=== PATIENT | male | born 1985 | race Caucasian/White ===

== ENCOUNTER 2022-09-18 19:40 | Inpatient (IN) ==
[2022-09-18] MEDS ORDERED: ZOFRAN TAB 4 MG PO STA (20:46)
--- NOTE | 2022-09-18 20:47 | DR.ABDMALE ---
HPI Time seen Time Seen by Provider: 09/18/22 20:46 PCP Primary Care Physician: KASSANDRA POLLARD HPI comment HPI Comment: 37y/o with EF 20% discharged earlier today after a bout of chf in now reporting that his main issue is abd pain x one month which no one has addressed; he is "always hurting" with nausea and intermittent vomiting as well as a 50 lbs wt loss in the past three months; he has a poor appetite but no fever, chills or rash; last bm three days ago; he denies etoh and nsaid use and reports his a1c was 16 when last checked; he has been on metformin for years but was taken off for some time; he's been back on it for the past year w/o issues; he denies use of glp1 and does not take the insulin he's supposed to be taking due to lack of funds. Complaint Chief Complaint:: PT C/O HES STRUGGLING TO BREATHE, VOMITING AND FEELS LIKE SOMEONE IS SQUEEZING HIS STOMACH X 1 MONTH. PT STATES HE WAS JUST D/C'D FROM [facility] THIS DATE AFTER A 3 DAY STAY FOR THE SAME SX WITH NO RELIEF. COVID-19 Coronavirus risk:travel/contact w/high risk person: No Has patient experienced Coronavirus symptoms: No Mode of arrival Mode of Arrival: Ambulatory Timing Onset of Chief Complaint: 08/19/22 PMH PMH Past Medical History: Yes Past Medical History: CHF and Diabetes Past Surgical History: Yes Past Surgical History Comment: HEART CATH THIS YEAR Family History History of Family Medical Conditions: Yes Family Medical History: Diabetes Mellitus, Coronary Artery Disease and Hypertension Social History Does patient currently use any type of tobacco product: Yes Have you used tobacco products in the last 12 months: Yes Type of Tobacco Use: Cigarettes Alcohol Use: None Do you use any recreational Drugs:: Yes (THC) Lives With: Family Lives Where: Home Travel Risk Coronavirus risk:travel/contact w/high risk person: No Has patient experienced Coronavirus symptoms: No Infectious screening In the last 2 months have you had wt loss of >10#?: NO Have you had fever, night sweats or hemotysis?: No Have you traveled outside the country in the last 6 months?: No Isolation: Standard ROS Review of Systems Constitutional: No Symptoms Reported Eyes: No Symptoms Reported ENTM: No Symptoms Reported Respiratoy: No Symptoms Reported Cardiovascular: See HPI, Chest Pain and Edema Gastrointestinal/Abdominal: See HPI and Abdominal Pain Genitourinary: No Symptoms Reported Neurological: No Symptoms Reported Musculoskeletal: No Symptoms Reported Integumentary: No Symptoms Reported Hematologic/Lymphatic: No Symptoms Reported Endocrine: No Symptoms Reported Psychiatric: No Symptoms Reported PE Vital Signs Vital Signs: Temp Pulse Resp BP Pulse Ox O2 Del Method 09/18/22 19:42 98.2 F 83 22 93/70 100 Room Air General Limitations: No Limitations General Appearance: Alert, In No Apparent Distress and Other (obvious loss of wt but still w/increased bmi) Head Head Exam: Normal Inspection Eyes Eye exam: Normal Appearance ENT ENT Exam: Normal Exam Neck Neck Exam: Normal Inspection Chest Chest Inspection: Normal Inspection Respiratory Respiratory Exam: Normal Lung Sounds Bilat Cardiovascular Cardiovascular Exam: Regular Rate and Normal Rhythm Abdominal Exam Abdominal Exam: Normal Inspection and Normal Bowel Sounds Abdominal Tenderness: RUQ, LLQ, Epigastrium and Moderate Rectal Rectal Exam: Deferred Back Back Exam: Normal Inspection Extremeties Extremities Exam: Normal Inspection Exam: Male: Deferred Neurologic Neurological Exam: Alert and Oriented X3 Psychiatric Psychiatric Exam: Normal Affect and Normal Mood Skin Skin Exam: Warm, Dry, Intact and Normal Color MDM Differential Diagnosis Differential Diagnosis: Cholcystitis, Esophagitis, Gastritus/PUD, Pancreatitis and Other (comments) (diabetic gastroparesis, metformin induced) ROR Labs Reviewed Laboratory Results Reviewed?: Yes 09/18/22 21:00 09/19/22 01:05 Laboratory: WBC 7.0 X10^3/uL (3.6-10.0) 09/18/22 21:00 RBC 6.01 X10^6/uL (4.7-6.0) H 09/18/22 21:00 Hgb 15.7 g/dL (13.5-18.0) 09/18/22 21:00 Hct 47.8 % (42.0-54.0) 09/18/22 21:00 MCV 79.5 fL (80.0-100.0) L 09/18/22 21:00 MCH 26.1 pg (27.0-34.0) L 09/18/22 21:00 MCHC 32.8 g/dL (33.0-35.0) L 09/18/22 21:00 RDW 15.4 % (11.6-16.5) 09/18/22 21:00 Plt Count 344 X10^3/uL (150.0-450.0) 09/18/22 21:00 MPV 8.9 fL (7.4-11.0) 09/18/22 21:00 Neut % (Auto) 52.9 % (42.0-75.0) 09/18/22 21:00 Lymph % (Auto) 37.7 % (21.0-51.0) 09/18/22 21:00 Daniels % (Auto) 7.5 % (0.0-13.0) 09/18/22 21:00 Eos % (Auto) 0.4 % (0.9-2.9) L 09/18/22 21:00 Baso % (Auto) 1.5 % (0.2-1.0) H 09/18/22 21:00 Neut # (Auto) 3.7 x10^3/uL (2.2-4.8) 09/18/22 21:00 Lymph # (Auto) 2.6 X10^3/uL (1.3-2.9) 09/18/22 21:00 Daniels # (Auto) 0.5 x10^3/uL (0.3-0.8) 09/18/22 21:00 Eos # (Auto) 0.0 x10^3/uL (0.0-0.2) 09/18/22 21:00 Baso # (Auto) 0.1 X10^3/uL (0.0-0.1) 09/18/22 21:00 Absolute Nucleated RBC 0.1 /100WBC 09/18/22 21:00 Sodium 124 mmol/L (136-145) L* 09/19/22 01:05 Corrected Sodium 125 mmol/L (136-145) L 09/19/22 01:05 Potassium 4.7 mmol/L (3.5-5.1) 09/19/22 01:05 Chloride 87 mmol/L (98-107) L 09/19/22 01:05 Carbon Dioxide 24.4 mmol/L (21-32) 09/19/22 01:05 BUN 21 mg/dL (7-18) H 09/19/22 01:05 Creatinine 0.92 mg/dL (0.70-1.30) 09/19/22 01:05 Est GFR (MDRD) Af Amer > 60 (>60) 09/19/22 01:05 Est GFR (MDRD) Non-Af > 60 (>60) 09/19/22 01:05 Glucose 144 mg/dL (65-99) H 09/19/22 01:05 POC Glucose (mg/dL) 125 mg/dL (65-99) H 09/19/22 01:11 Calcium 8.1 mg/dL (8.5-10.1) L 09/19/22 01:05 Corrected Calcium 9.0 mg/dL (8.5-10.1) 09/18/22 21:00 Total Bilirubin 1.20 mg/dL (0.2-1.0) H 09/18/22 21:00 AST 63 Units/L (15-37) H 09/18/22 21:00 ALT 35 Units/L (12-78) 09/18/22 21:00 Alkaline Phosphatase 366 Units/L (46-116) H 09/18/22 21:00 Total Protein 5.9 g/dL (6.4-8.2) L 09/18/22 21:00 Albumin 2.2 g/dL (3.4-5.0) L 09/18/22 21:00 Globulin 3.7 g/dL (2.5-4.5) 09/18/22 21:00 Albumin/Globulin Ratio 0.6 Ratio (1.1-2.1) L 09/18/22 21:00 Lipase 54 Units/L (73-393) L 09/18/22 21:00 Specimen Type Clean catch urine 09/18/22 23:48 Urine Color Dark yellow (YELLOW) 09/18/22 23:48 Urine Appearance Clear (CLEAR) 09/18/22 23:48 Urine pH 6.0 (5.0 - 8.0) 09/18/22 23:48 Ur Specific [place] 1.020 (1.000-1.030) 09/18/22 23:48 Urine Protein 3+ (NEGATIVE) 09/18/22 23:48 Urine Glucose (UA) 2+ (NEGATIVE) 09/18/22 23:48 Urine Ketones Negative (NEGATIVE) 09/18/22 23:48 Urine Blood 1+ (NEGATIVE) 09/18/22 23:48 Urine Nitrite Negative (NEGATIVE) 09/18/22 23:48 Urine Bilirubin Negative (NEGATIVE) 09/18/22 23:48 Urine Urobilinogen 2+ (NORMAL) 09/18/22 23:48 Ur Leukocyte Esterase Negative (NEGATIVE) 09/18/22 23:48 Urine RBC 0-2 /HPF (0-3) 09/18/22 23:48 Urine WBC 0-2 /HPF (0-5) 09/18/22 23:48 Ur Squamous Epith Cells Few /HPF (NEGATIVE) 09/18/22 23:48 Urine Bacteria Trace /HPF (NEGATIVE) 09/18/22 23:48 Hyaline Casts Few /LPF (NEGATIVE) 09/18/22 23:48 Urine Mucus Moderate /HPF (NEGATIVE) 09/18/22 23:48 Ur Culture Indicated? No/not indicated 09/18/22 23:48 Other Results Comments: Pain, n/v, wt loss most likely d/t gastroparesis vs metformin; will have him hold metformin until he can see GI; no change in sodium with fluids; will admit and slowly hydrate XRAY X-ray Results: ct abd/pelvis: 1. No evidence of urinary tract stone disease. 2. Small amount of ascites in the abdomen and pelvis. 3. nonspecific body wall edema. Opioid Opioid Risk Tool Age (Alex box if 16-45): Yes History of Preadolescent Sexual Abuse: No Total: 1 Total Score Risk Category: Low Risk Copyright: Noah RIVERA predicting aberrant behaviors Discharge Plan Diagnosis Discharge Problem: Abnormal weight loss, Acute hyponatremia Abdominal pain Qualifiers: Abdominal location: generalized Qualified Code(s): R10.84 - Generalized abdominal pain Uncontrolled diabetes mellitus Qualifiers: Diabetes mellitus type: type 2 Glycemic state: with hyperglycemia Qualified Code(s): E11.65 - Type 2 diabetes mellitus with hyperglycemia Hypotension Qualifiers: Hypotension type: hypotension due to drug Qualified Code(s): I95.2 - Hypotension due to drugs Discharge Plan Patient Disposition: ADMITTED INPATIENT Condition: Stable
[2022-09-18] MEDS ORDERED: ZOFRAN TAB 4 MG ONE (20:49)
[2022-09-18 21:12] LABS: HEMOGLOBIN 15.7 g/dL (13.5-18.0); MEAN PLATELET VOLUME 8.9 fL (7.4-11.0)
[2022-09-18 21:16] LABS: BASOPHILS # (AUTO) 0.1 X10^3/uL (0.0-0.1); BASOPHILS % (AUTO) 1.5 % (0.2-1.0); EOSINOPHILS % (AUTO) 0.4 % (0.9-2.9); HEMATOCRIT 47.8 % (42.0-54.0); LYMPHOCYTES # (AUTO) 2.6 X10^3/uL (1.3-2.9); LYMPHOCYTES % (AUTO) 37.7 % (21.0-51.0); MEAN CORPUSCULAR HEMOGLOBIN 26.1 pg (27.0-34.0); MEAN CORPUSCULAR HGB CONC 32.8 g/dL (33.0-35.0); MEAN CORPUSCULAR VOLUME 79.5 fL (80.0-100.0); MONOCYTES # (AUTO) 0.5 x10^3/uL (0.3-0.8); MONOCYTES % (AUTO) 7.5 % (0.0-13.0); NEUTROPHILS # (AUTO) 3.7 x10^3/uL (2.2-4.8); NEUTROPHILS % (AUTO) 52.9 % (42.0-75.0); PLATELET COUNT 344 X10^3/uL (150.0-450.0); RED BLOOD COUNT 6.01 X10^6/uL (4.7-6.0); RED CELL DISTRIBUTION WIDTH 15.4 % (11.6-16.5)
[2022-09-18 21:20] LABS: ALANINE AMINOTRANSFERASE 35 Units/L (12-78); ALBUMIN 2.2 g/dL (3.4-5.0); ALKALINE PHOSPHATASE 366 Units/L (46-116); ASPARTATE AMINO TRANSFERASE 63 Units/L (15-37); BLOOD UREA NITROGEN 22 mg/dL (7-18); CALCIUM 7.6 mg/dL (8.5-10.1); CARBON DIOXIDE 31.4 mmol/L (21-32); CHLORIDE 89 mmol/L (98-107); COR NA(FOR HYPERGLY) 129 mmol/L (136-145); CREATININE 1.15 mg/dL (0.70-1.30); GLUCOSE 291 mg/dL (65-99); LIPASE 54 Units/L (73-393); TOTAL PROTEIN 5.9 g/dL (6.4-8.2); eGFR NON BLACK RACES > 60 (>60)
[2022-09-18 21:23] LABS: SODIUM 124 mmol/L (136-145)
[2022-09-18] MEDS ORDERED: NS 1,000 ML IV 1,000 ML ONE (21:30)
--- NOTE | 2022-09-18 21:39 | CT ---
HISTORYC/O HES STRUGGLING TO BREATHE, VOMITING AND FEELS LIKE SOMEONE IS SQUEEZING HIS STOMACH X 1 MONTH. PT [facility] THIS DATESTUDYABDOMEN/PELVIS W/O CONCOMPARISONTECHNIQUEMultiple axial images of the abdomen and pelvis were obtained from the lung bases to the pubic symphysis without the administration of IV contrast. Dose reduction techniques including Automated Exposure Control (AEC) and adjustment of mA and kV were utilized.FINDINGSThe lung bases are clear. There are small bilateral pleural effusions. The heart size is normal. The liver is normal. The spleen, adrenal glands are normal. There are no convincing stones in the gallbladder. Pancreas is somewhat atrophic. The kidneys are normal in size and there is no stone or hydronephrosis on either side. The stomach and small bowel loops are normal. The appendix is normal. The large bowel loops are grossly unremarkable. Urinary bladder is normal. The prostate is normal. There is a small amount of ascites in the abdomen. There is nonspecific induration in the mesenteric fat. There is body wall edema. There is no worrisome bone marrow lesion.IMPRESSION1. No evidence of urinary tract stone disease. 2. Small amount of ascites in the abdomen and pelvis. 3. nonspecific body wall edema.Electronically signed by: Dick Pop (Sep 18, 2022 21:37:23)
[2022-09-18] MEDS: NS 1,000 ML IV 1,000 ML IV SCH (21:40)
[2022-09-18 23:59] LABS: BILIRUBIN,URINE NEGATIVE (NEGATIVE); BLOOD/HEMOGLOBIN,URINE 1+ (NEGATIVE); GLUCOSE, URINE 2+ (NEGATIVE); KETONES,URINE NEGATIVE (NEGATIVE); LEUKOCYTE ESTERASE ,URINE NEGATIVE (NEGATIVE); NITRITES,URINE NEGATIVE (NEGATIVE); PROTEIN,URINE 3+ (NEGATIVE); UROBILINOGEN,URINE 2+ (NORMAL)
[2022-09-19 00:05] LABS: APPEARANCE,URINE CLEAR (CLEAR); COLOR,URINE DARK YELLOW (YELLOW)
[2022-09-19 00:06] LABS: BACTERIA,URINE TRACE /HPF (NEGATIVE); HYALINE CASTS, URINE FEW /LPF (NEGATIVE); RBC,URINE 0-2 /HPF (0-3); SQUAMOUS EPITHELIAL CELL,UR FEW /HPF (NEGATIVE)
[2022-09-19] MEDS ORDERED: ZOFRAN TAB 4 MG ONE (01:16)
[2022-09-19] MEDS ORDERED: ZOFRAN TAB 4 MG PO STA (01:17)
[2022-09-19 01:26] LABS: CHLORIDE 87 mmol/L (98-107)
[2022-09-19 01:34] LABS: POTASSIUM 4.7 mmol/L (3.5-5.1)
[2022-09-19 01:35] LABS: BLOOD UREA NITROGEN 21 mg/dL (7-18); CARBON DIOXIDE 24.4 mmol/L (21-32); SODIUM 124 mmol/L (136-145)
[2022-09-19 01:36] LABS: CALCIUM 8.1 mg/dL (8.5-10.1); COR NA(FOR HYPERGLY) 125 mmol/L (136-145); CREATININE 0.92 mg/dL (0.70-1.30); GLUCOSE 144 mg/dL (65-99); eGFR NON BLACK RACES > 60 (>60)
[2022-09-19] MEDS ORDERED: NovoLIN R (or HumuLIN R) SUBCUT PRN (01:46)
[2022-09-19] MEDS ORDERED: CONSULT PHARMACY - POTASSIUM & MAGNESIUM XX SCH ×2 (02:00→07:00)
[2022-09-19] MEDS ORDERED: NS 1,000 ML IV 1,000 ML ONE (02:11)
[2022-09-19] MEDS: NS 1,000 ML IV 1,000 ML IV SCH ×3 (02:14→22:39)
[2022-09-19 02:43] VITALS: BMI 34.4
[2022-09-19 05:25] LABS: BASOPHILS # (AUTO) 0.1 X10^3/uL (0.0-0.1); BASOPHILS % (AUTO) 1.3 % (0.2-1.0); EOSINOPHILS % (AUTO) 0.4 % (0.9-2.9); HEMATOCRIT 48.5 % (42.0-54.0); LYMPHOCYTES # (AUTO) 2.9 X10^3/uL (1.3-2.9); LYMPHOCYTES % (AUTO) 33.1 % (21.0-51.0); MEAN CORPUSCULAR HEMOGLOBIN 26.2 pg (27.0-34.0); MEAN CORPUSCULAR HGB CONC 32.9 g/dL (33.0-35.0); MEAN CORPUSCULAR VOLUME 79.5 fL (80.0-100.0); MEAN PLATELET VOLUME 8.8 fL (7.4-11.0); MONOCYTES # (AUTO) 0.8 x10^3/uL (0.3-0.8); MONOCYTES % (AUTO) 8.7 % (0.0-13.0); NEUTROPHILS % (AUTO) 56.5 % (42.0-75.0); PLATELET COUNT 323 X10^3/uL (150.0-450.0); RED CELL DISTRIBUTION WIDTH 15.4 % (11.6-16.5); WHITE BLOOD COUNT 8.9 X10^3/uL (3.6-10.0)
[2022-09-19 05:35] LABS: ALANINE AMINOTRANSFERASE 36 Units/L (12-78); ALBUMIN 2.3 g/dL (3.4-5.0); ALKALINE PHOSPHATASE 377 Units/L (46-116); ASPARTATE AMINO TRANSFERASE 67 Units/L (15-37); BLOOD UREA NITROGEN 20 mg/dL (7-18); CALCIUM 7.6 mg/dL (8.5-10.1); CARBON DIOXIDE 28.4 mmol/L (21-32); CHLORIDE 89 mmol/L (98-107); COR NA(FOR HYPERGLY) 128 mmol/L (136-145); CREATININE 1.05 mg/dL (0.70-1.30); GLUCOSE 247 mg/dL (65-99); POTASSIUM 3.7 mmol/L (3.5-5.1); eGFR NON BLACK RACES > 60 (>60)
[2022-09-19 05:38] LABS: SODIUM 124 mmol/L (136-145)
[2022-09-19] MEDS ORDERED: SODIUM CHL HYPERTONIC ** 3% ** 500 ML IV NR (08:49)
[2022-09-19] MEDS ORDERED: K-DUR TAB 20 MEQ PO SCH (09:00)
[2022-09-19] MEDS: GLUCOPHAGE XR 24-HR PO SCH ×2 (09:23→21:54)
[2022-09-19] MEDS: MAG-OX TAB PO SCH ×2 (09:23→21:55)
[2022-09-19] MEDS ORDERED: BUMEX TAB 1 MG PO SCH (10:00)
[2022-09-19] MEDS: ZESTRIL TAB 5 MG PO SCH (10:52)
[2022-09-19] MEDS: ASPIRIN EC 81 MG PO SCH (10:52)
[2022-09-19] MEDS: COREG TAB 3.125 MG PO SCH ×2 (10:52→21:54)
[2022-09-19] MEDS ORDERED: SNACK - Diabetic Appropriate PO SCH (20:00)
[2022-09-19] MEDS: COLACE CAP 100 MG PO SCH (21:54)
[2022-09-19] MEDS: MIRALAX POWDER (1 DOSE 17 G) PO SCH (21:55)
[2022-09-20] MEDS: NS 1,000 ML IV 1,000 ML IV SCH (03:16)
[2022-09-20 05:50] LABS: BASOPHILS # (AUTO) 0.1 X10^3/uL (0.0-0.1); BASOPHILS % (AUTO) 1.3 % (0.2-1.0); EOSINOPHILS # (AUTO) 0.1 x10^3/uL (0.0-0.2); EOSINOPHILS % (AUTO) 0.7 % (0.9-2.9); HEMATOCRIT 47.9 % (42.0-54.0); HEMOGLOBIN 15.7 g/dL (13.5-18.0); LYMPHOCYTES # (AUTO) 2.7 X10^3/uL (1.3-2.9); MEAN CORPUSCULAR HEMOGLOBIN 25.9 pg (27.0-34.0); MEAN CORPUSCULAR HGB CONC 32.8 g/dL (33.0-35.0); MEAN CORPUSCULAR VOLUME 79.1 fL (80.0-100.0); MEAN PLATELET VOLUME 9.1 fL (7.4-11.0); MONOCYTES # (AUTO) 0.7 x10^3/uL (0.3-0.8); NEUTROPHILS # (AUTO) 5.5 x10^3/uL (2.2-4.8); PLATELET COUNT 323 X10^3/uL (150.0-450.0); RED BLOOD COUNT 6.05 X10^6/uL (4.7-6.0); RED CELL DISTRIBUTION WIDTH 15.8 % (11.6-16.5); WHITE BLOOD COUNT 9.2 X10^3/uL (3.6-10.0)
[2022-09-20 06:03] LABS: ALANINE AMINOTRANSFERASE 32 Units/L (12-78); ALBUMIN 1.9 g/dL (3.4-5.0); ALKALINE PHOSPHATASE 395 Units/L (46-116); ASPARTATE AMINO TRANSFERASE 73 Units/L (15-37); BLOOD UREA NITROGEN 25 mg/dL (7-18); CALCIUM 7.4 mg/dL (8.5-10.1); CHLORIDE 91 mmol/L (98-107); COR CA(FOR HYPOALB) 9.1 mg/dL (8.5-10.1); COR NA(FOR HYPERGLY) 129 mmol/L (136-145); CREATININE 1.08 mg/dL (0.70-1.30); GLUCOSE 310 mg/dL (65-99); POTASSIUM 4.1 mmol/L (3.5-5.1); TOTAL PROTEIN 5.4 g/dL (6.4-8.2); eGFR NON BLACK RACES > 60 (>60)
[2022-09-20 06:05] LABS: SODIUM 124 mmol/L (136-145)
[2022-09-20] MEDS ORDERED: SODIUM CHL HYPERTONIC ** 3% ** 500 ML IV NR (08:41)
[2022-09-20] MEDS: ZESTRIL TAB 5 MG PO SCH (08:41)
[2022-09-20] MEDS: ASPIRIN EC 81 MG PO SCH (08:43)
[2022-09-20] MEDS: COREG TAB 3.125 MG PO SCH ×2 (08:43→21:05)
[2022-09-20] MEDS: GLUCOPHAGE XR 24-HR PO SCH ×2 (08:43→21:05)
[2022-09-20] MEDS: MAG-OX TAB PO SCH ×2 (08:44→21:05)
[2022-09-20] MEDS ORDERED: ZOFRAN INJ 4 MG VIAL IVP PRN (09:25)
[2022-09-20] MEDS: SODIUM CHL HYPERTONIC ** 3% ** 500 ML IV SCH (11:21)
[2022-09-20] MEDS ORDERED: PATIENT'S HOME MEDICATION (Precose 100 MG) PO SCH (11:30)
[2022-09-20] MEDS ORDERED: PHENERGAN INJ 25 MG IM SCH (12:00)
[2022-09-20] MEDS: FARXIGA PO SCH (13:00)
[2022-09-20] MEDS: ENTRESTO 24/26 MG TABLET PO SCH ×2 (13:02→21:06)
[2022-09-20] MEDS ORDERED: BUMEX TAB 1 MG PO SCH (21:00)
[2022-09-20] MEDS: MIRALAX POWDER (1 DOSE 17 G) PO SCH (21:06)
[2022-09-20] MEDS: COLACE CAP 100 MG PO SCH (21:06)
[2022-09-20] MEDS: NovoLIN R (or HumuLIN R) SUBCUT PRN (21:48)
[2022-09-21] MEDS: SODIUM CHL HYPERTONIC ** 3% ** 500 ML IV SCH ×2 (00:46→14:56)
[2022-09-21] MEDS: NS 1,000 ML IV 1,000 ML IV SCH ×3 (00:46→21:32)
[2022-09-21] MEDS: NovoLIN R (or HumuLIN R) SUBCUT PRN ×3 (06:24→21:34)
[2022-09-21 06:35] LABS: BASOPHILS # (AUTO) 0.1 X10^3/uL (0.0-0.1); BASOPHILS % (AUTO) 0.7 % (0.2-1.0); EOSINOPHILS # (AUTO) 0.1 x10^3/uL (0.0-0.2); EOSINOPHILS % (AUTO) 0.6 % (0.9-2.9); HEMATOCRIT 54.6 % (42.0-54.0); LYMPHOCYTES # (AUTO) 3.4 X10^3/uL (1.3-2.9); LYMPHOCYTES % (AUTO) 36.4 % (21.0-51.0); MEAN CORPUSCULAR HEMOGLOBIN 25.9 pg (27.0-34.0); MEAN CORPUSCULAR HGB CONC 32.4 g/dL (33.0-35.0); MEAN CORPUSCULAR VOLUME 79.9 fL (80.0-100.0); MEAN PLATELET VOLUME 8.9 fL (7.4-11.0); MONOCYTES # (AUTO) 0.8 x10^3/uL (0.3-0.8); MONOCYTES % (AUTO) 8.7 % (0.0-13.0); NEUTROPHILS % (AUTO) 53.6 % (42.0-75.0); PLATELET COUNT 392 X10^3/uL (150.0-450.0); RED BLOOD COUNT 6.84 X10^6/uL (4.7-6.0); WHITE BLOOD COUNT 9.4 X10^3/uL (3.6-10.0)
[2022-09-21 06:41] LABS: ALANINE AMINOTRANSFERASE 46 Units/L (12-78); ALBUMIN 2.6 g/dL (3.4-5.0); ALKALINE PHOSPHATASE 487 Units/L (46-116); ASPARTATE AMINO TRANSFERASE 79 Units/L (15-37); BLOOD UREA NITROGEN 21 mg/dL (7-18); CARBON DIOXIDE 28.9 mmol/L (21-32); CHLORIDE 94 mmol/L (98-107); COR CA(FOR HYPOALB) 9.1 mg/dL (8.5-10.1); COR NA(FOR HYPERGLY) 133 mmol/L (136-145); CREATININE 1.14 mg/dL (0.70-1.30); GLUCOSE 205 mg/dL (65-99); POTASSIUM 3.9 mmol/L (3.5-5.1); SODIUM 130 mmol/L (136-145); TOTAL PROTEIN 6.9 g/dL (6.4-8.2); eGFR NON BLACK RACES > 60 (>60)
[2022-09-21 07:23] LABS: HEMOGLOBIN 17.7 g/dL (13.5-18.0)
[2022-09-21] MEDS: ENTRESTO 24/26 MG TABLET PO SCH ×2 (08:46→20:20)
[2022-09-21] MEDS: FARXIGA PO SCH (08:46)
[2022-09-21] MEDS: GLUCOPHAGE XR 24-HR PO SCH ×2 (08:47→20:20)
[2022-09-21] MEDS: ASPIRIN EC 81 MG PO SCH (08:47)
[2022-09-21] MEDS: COREG TAB 3.125 MG PO SCH ×2 (08:47→20:20)
[2022-09-21] MEDS: MAG-OX TAB PO SCH ×3 (08:47→20:23)
[2022-09-21] MEDS ORDERED: PHENERGAN INJ 25 MG IM PRN (12:52)
[2022-09-21] MEDS: COLACE CAP 100 MG PO SCH (20:20)
[2022-09-21] MEDS: MIRALAX POWDER (1 DOSE 17 G) PO SCH (20:20)
[2022-09-22] MEDS: SODIUM CHL HYPERTONIC ** 3% ** 500 ML IV SCH ×3 (01:11→12:11)
[2022-09-22] MEDS: NovoLIN R (or HumuLIN R) SUBCUT PRN ×4 (05:42→22:40)
[2022-09-22 07:00] LABS: BASOPHILS # (AUTO) 0.1 X10^3/uL (0.0-0.1); BASOPHILS % (AUTO) 1.3 % (0.2-1.0); EOSINOPHILS # (AUTO) 0.1 x10^3/uL (0.0-0.2); EOSINOPHILS % (AUTO) 0.7 % (0.9-2.9); LYMPHOCYTES # (AUTO) 2.8 X10^3/uL (1.3-2.9); LYMPHOCYTES % (AUTO) 36.9 % (21.0-51.0); MEAN CORPUSCULAR HEMOGLOBIN 25.4 pg (27.0-34.0); MEAN CORPUSCULAR HGB CONC 32.1 g/dL (33.0-35.0); MEAN CORPUSCULAR VOLUME 79.3 fL (80.0-100.0); MEAN PLATELET VOLUME 8.9 fL (7.4-11.0); MONOCYTES # (AUTO) 0.6 x10^3/uL (0.3-0.8); MONOCYTES % (AUTO) 8.2 % (0.0-13.0); NEUTROPHILS # (AUTO) 4.1 x10^3/uL (2.2-4.8); NEUTROPHILS % (AUTO) 52.9 % (42.0-75.0); PLATELET COUNT 353 X10^3/uL (150.0-450.0); RED CELL DISTRIBUTION WIDTH 15.5 % (11.6-16.5); WHITE BLOOD COUNT 7.7 X10^3/uL (3.6-10.0)
[2022-09-22 07:19] LABS: ALANINE AMINOTRANSFERASE 36 Units/L (12-78); ALBUMIN 2.4 g/dL (3.4-5.0); ALKALINE PHOSPHATASE 410 Units/L (46-116); ASPARTATE AMINO TRANSFERASE 59 Units/L (15-37); BLOOD UREA NITROGEN 20 mg/dL (7-18); CALCIUM 7.9 mg/dL (8.5-10.1); CARBON DIOXIDE 22.5 mmol/L (21-32); CHLORIDE 98 mmol/L (98-107); COR CA(FOR HYPOALB) 9.2 mg/dL (8.5-10.1); COR NA(FOR HYPERGLY) 135 mmol/L (136-145); CREATININE 1.05 mg/dL (0.70-1.30); GLUCOSE 246 mg/dL (65-99); POTASSIUM 4.6 mmol/L (3.5-5.1); SODIUM 131 mmol/L (136-145); TOTAL PROTEIN 6.3 g/dL (6.4-8.2); eGFR NON BLACK RACES > 60 (>60)
[2022-09-22] MEDS: ENTRESTO 24/26 MG TABLET PO SCH ×2 (08:23→21:57)
[2022-09-22] MEDS: COREG TAB 3.125 MG PO SCH ×3 (08:23→21:54)
[2022-09-22] MEDS: ASPIRIN EC 81 MG PO SCH (08:24)
[2022-09-22] MEDS: FARXIGA PO SCH (08:24)
[2022-09-22] MEDS: MAG-OX TAB PO SCH ×2 (08:24→21:57)
[2022-09-22] MEDS: GLUCOPHAGE XR 24-HR PO SCH ×2 (08:24→21:56)
[2022-09-22] MEDS: NS 1,000 ML IV 1,000 ML IV SCH (08:25)
[2022-09-22] MEDS ORDERED: ALBUMIN HUMAN 25%- 100 ML 100 ML IV SCH (11:00)
[2022-09-22] MEDS: BUMEX TAB 1 MG PO SCH ×2 (13:58→21:56)
[2022-09-22 17:11] VITALS: O2SAT 100
[2022-09-22] MEDS ORDERED: BUMEX TAB 1 MG PO SCH (21:00)
[2022-09-22] MEDS: COLACE CAP 100 MG PO SCH (21:53)
[2022-09-22] MEDS: MIRALAX POWDER (1 DOSE 17 G) PO SCH (21:56)
[2022-09-23 06:23] LABS: BASOPHILS # (AUTO) 0.1 X10^3/uL (0.0-0.1); BASOPHILS % (AUTO) 1.5 % (0.2-1.0); EOSINOPHILS # (AUTO) 0.1 x10^3/uL (0.0-0.2); EOSINOPHILS % (AUTO) 1.2 % (0.9-2.9); HEMATOCRIT 46.1 % (42.0-54.0); HEMOGLOBIN 14.8 g/dL (13.5-18.0); LYMPHOCYTES # (AUTO) 3.1 X10^3/uL (1.3-2.9); LYMPHOCYTES % (AUTO) 40.9 % (21.0-51.0); MEAN CORPUSCULAR HEMOGLOBIN 25.5 pg (27.0-34.0); MEAN CORPUSCULAR VOLUME 79.6 fL (80.0-100.0); MEAN PLATELET VOLUME 8.8 fL (7.4-11.0); MONOCYTES # (AUTO) 0.7 x10^3/uL (0.3-0.8); MONOCYTES % (AUTO) 9.9 % (0.0-13.0); NEUTROPHILS # (AUTO) 3.5 x10^3/uL (2.2-4.8); NEUTROPHILS % (AUTO) 46.5 % (42.0-75.0); PLATELET COUNT 256 X10^3/uL (150.0-450.0); RED CELL DISTRIBUTION WIDTH 15.7 % (11.6-16.5); WHITE BLOOD COUNT 7.6 X10^3/uL (3.6-10.0)
[2022-09-23 06:50] LABS: ALANINE AMINOTRANSFERASE 29 Units/L (12-78); ALBUMIN 2.1 g/dL (3.4-5.0); ALKALINE PHOSPHATASE 335 Units/L (46-116); ASPARTATE AMINO TRANSFERASE 43 Units/L (15-37); BLOOD UREA NITROGEN 16 mg/dL (7-18); CALCIUM 8.4 mg/dL (8.5-10.1); CARBON DIOXIDE 29.5 mmol/L (21-32); CHLORIDE 100 mmol/L (98-107); COR CA(FOR HYPOALB) 9.9 mg/dL (8.5-10.1); COR NA(FOR HYPERGLY) 136 mmol/L (136-145); CREATININE 1.14 mg/dL (0.70-1.30); GLUCOSE 160 mg/dL (65-99); POTASSIUM 4.3 mmol/L (3.5-5.1); SODIUM 135 mmol/L (136-145); TOTAL PROTEIN 5.5 g/dL (6.4-8.2); eGFR NON BLACK RACES > 60 (>60)
[2022-09-23 08:01] VITALS: BP 92/56; PULSE 74; RESP 20; TEMP 97.5
[2022-09-23] MEDS: ENTRESTO 24/26 MG TABLET PO SCH (08:19)
[2022-09-23] MEDS: FARXIGA PO SCH (08:20)
[2022-09-23] MEDS: GLUCOPHAGE XR 24-HR PO SCH (08:20)
[2022-09-23] MEDS: MAG-OX TAB PO SCH (08:20)
[2022-09-23] MEDS: BUMEX TAB 1 MG PO SCH (08:20)
[2022-09-23] MEDS: COREG TAB 3.125 MG PO SCH (08:20)
[2022-09-23] MEDS: ASPIRIN EC 81 MG PO SCH (08:20)
== END 2022-09-23 11:30 | disposition home or self-care (01) | DRG 641 ==
LOC: MED/SURG 19:40 → ER 19:40 → OBSVTOIN 09-19 01:46 → MED/SURG 09-19 02:19
PROVIDERS: ADMIT Obstetrics & Gynecology Obstetrics; ATTEND Obstetrics & Gynecology Obstetrics
DX: E87.1 Hypo-osmolality and hyponatremia; I25.10 Atherosclerotic heart disease of native coronary artery without angina pectoris; Z72.0 Tobacco use; I95.2 Hypotension due to drugs; Z91.14 Patient's other noncompliance with medication regimen; Z86.16 Personal history of COVID-19; E11.65 Type 2 diabetes mellitus with hyperglycemia; Z91.190 Patient's noncompliance with other medical treatment and regimen due to financial hardship; I50.9 Heart failure, unspecified; R63.4 Abnormal weight loss; R10.9 Unspecified abdominal pain; I10 Essential (primary) hypertension